=== PATIENT | female | born 1970 | race Caucasian/White ===

== ENCOUNTER 2017-10-14 12:39 | Day surgery (SDC) | payer BC ==
[~2017-10-14] VITALS: Ht 154.9 cm; Wt 106.8 kg
[~2017-10-14 12:39] MED LIST: B-125000 MC1 SL; BUTALB-ASPIRIN1 EACH PO; CYMBALTA60 MG PO; ENBREL50 MG/1 ML SC; FOLIC ACID1 MG PO; LODINE500 MG PO; LYRICA225 MG PO; METHOTREXATE2.5 MG PO; OXAYDO5 MG PO; PRINIVIL5 MG PO; REMERON15 M2 PO; TOPAMAX50 MG PO; TRULANCE3 MG PO; VITAMIN D5000 UNI1 PO; VOLTAREN 1% GE100 GM TP; YUVAFEM10 MCG VG; ZANTAC150 MG PO
[2017-10-14 13:04] LABS: POINT-OF-CARE METER ID UU14174212
[2017-10-14 13:17] VITALS: BP 152/75
[2017-10-14 16:44] LABS: POINT-OF-CARE METER ID UU13113675
[2017-10-14 17:20] VITALS: BP 166/79
[2017-10-14 18:25] VITALS: BP 143/65
== END 2017-10-14 18:33 | disposition home or self-care (01) ==
LOC: SDC 12:39
PROVIDERS: Orthopaedic Surgery Hand Surgery
DX: S53.441A Ulnar collateral ligament sprain of right elbow, initial encounter (principal); S53.431A Radial collateral ligament sprain of right elbow, initial encounter; G56.01 Carpal tunnel syndrome, right upper limb; M77.11 Lateral epicondylitis, right elbow; X58.XXXA Exposure to other specified factors, initial encounter; M79.7 Fibromyalgia; I10 Essential (primary) hypertension; E11.9 Type 2 diabetes mellitus without complications; J45.909 Unspecified asthma, uncomplicated; G47.30 Sleep apnea, unspecified; K21.9 Gastro-esophageal reflux disease without esophagitis
CPT/HCPCS: 82948; C1713; J2250; J2405; J3010; Q0175; S0020